=== PATIENT | male | born 1985 | race African-American/Black ===

== ENCOUNTER 2016-06-06 01:52 | Emergency (ER) | payer OTHER ==
--- NOTE | ~2016-06-06 | CR72 ---
[facility] A Service of [facility] [place] & [facility] RADIOLOGY TEXT RESULTS PATIENT: JORDAN LAINEZ LOCATION: [facility] : 81 UNIT #: [id number] AGE: [address]: Anjel Hannah MD SEX: M ORDER DR: [id number] [facility] [address] [place], [place] [address] [id number] E MR#: [id number] Acc #: [id number] NAME: JORDAN LAINEZ : 1985 SEX: M STUDY DATE/TIME: 06/06/2016 1:09 UNIT: [facility] ROOM: STUDY DESCRIPTION: CR Chest Single View Portable Attending Physician: Anjel Hannah M.D. Ordering Physician: Anjel Hannah M.D. Primary Care Physician: Cat Kemp [facility] MEDICAL IMAGING REPORT This report is preliminary unless electronic signature is present EXAM AP portable chest date 06/06/2016 at 01:09 HISTORY Shortness of breath, cough and asthma for 7 days. COMPARISON PA and lateral chest radiograph 01/24/2010 FINDINGS Low volume inspiration. No acute airspace disease is seen. Heart size is within normal limits. No pleural effusion or pneumothorax. IMPRESSION Low volume inspiration. No acute chest findings. Dictated by... Yesenia Mariano M.D. THIS IS AN ELECTRONICALLY VERIFIED REPORT Yesenia Mariano M.D. at 06/06/2016 6:01 AM CJ/efrain TD: 06/06/2016 04:45 JOB #: [id number] MEDICAL IMAGING REPORT Page 1 of 1 COPY
[~2016-06-06 01:52] MED LIST: ACETAMINOPHEN; ALBUTEROL17 G1 IH; AMOXICILLIN500 M1 PO; E-MYCIN250 MG PO; ERYTHROMYCIN500 MG PO; FLEXERIL PO; KETOPROFEN PO; LORTAB 5/500 TA1 TA1 PO; NO MEDICATIONS; PREDNISONE10 MG PO; VOLTAREN75 MG PO
== END 2016-06-06 02:45 | disposition home or self-care (01) ==
LOC: CED 01:52
DX: J45.909 Unspecified asthma, uncomplicated (principal); F17.200 Nicotine dependence, unspecified, uncomplicated
CPT/HCPCS: 71010; 94640; 99284

== ENCOUNTER 2016-10-22 13:31 | Emergency (ER) | payer OTHER ==
[~2016-10-22] VITALS: Ht 172.7 cm; Wt 105.7 kg
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
== END 2016-10-22 16:00 | disposition home or self-care (01) ==
LOC: CFTX 13:31 → CED 13:31 → CFTX 14:44
DX: S29.012A Strain of muscle and tendon of back wall of thorax, initial encounter (principal); S39.012A Strain of muscle, fascia and tendon of lower back, initial encounter; I10 Essential (primary) hypertension; F17.210 Nicotine dependence, cigarettes, uncomplicated; V49.50XA Passenger injured in collision with unspecified motor vehicles in traffic accident, initial encounter
CPT/HCPCS: 72072; 72100; 99283